=== PATIENT | female | born 1980 | race Caucasian/White ===

== ENCOUNTER 2017-03-16 06:03 | Inpatient (IN) | payer OTHER, SELFPAY ==
[2017-03-16 06:45] VITALS: BMI 32.4
[2017-03-16] MEDS: Lactated Ringer's 1,000 ML IV SCH ×2 (06:50→12:03)
[2017-03-16] MEDS ORDERED: Lidocaine 1% (PF) 30 ML VIAL SC PRN (08:01)
[2017-03-16] MEDS ORDERED: Promethazine HCl 25 MG/ML VIAL IM PRN ×2 (08:01→12:56)
[2017-03-16] MEDS ORDERED: LR / Pitocin 40 units/1000 ml 1,000 ML IV PRN (08:01)
[2017-03-16] MEDS ORDERED: Ondansetron HCl/PF 4 MG/2 ML Vial IVP PRN ×2 (08:01→12:56)
[2017-03-16 08:18] LABS: Hematocrit 40.7 % (36.0-47.0); Red Blood Cell (RBC) Count 4.44 mill/uL (4.20-5.40); White Blood Cell (WBC) Count 7.8 thou/uL (4.8-10.8)
[2017-03-16] MEDS ORDERED: LR 500 ML/Oxytocin 10 units 500 ML ONE (08:36)
[2017-03-16] MEDS ORDERED: LR 500 ML/Oxytocin 10 units 500 ML IV SCH (09:00)
--- NOTE | 2017-03-16 11:37 | PDOC.LDPN ---
Labor & Delivery Progress Note - Subjective Subjective: comfortable, no concerns - Objective Vital signs reviewed and normal: yes General: NAD, resting Uterine fundus: non tender SVE: by Dr. Teixeira @ 1130 Dilation: 6 Effacement: 75% Station: -3 FHT: category 1 (baseline 130/mod david/+accel/-decel), variability present [place] contractions every: 2-4 minutes - Assessment (1) Active labor at term Code(s): [id number] - Current Visit: No Status: Acute Comment: 36 yo @ 40.0 WGA presented for IOL. -started pitocin, currently at 10 -would like epidural for pain control -LR @ 125 Plan: continue plan of care
[2017-03-16] MEDS ORDERED: Fentanyl 4 mcg/Marc 0.1% Cadd 100 ML ONE (11:42)
[2017-03-16] MEDS ORDERED: Lidocaine 1% (PF) 30 ML VIAL ONE ×2 (12:31→16:57)
[2017-03-16] MEDS ORDERED: Naloxone HCl 0.4 mg/ml Vial IVP PRN ×2 (12:56)
[2017-03-16] MEDS ORDERED: Eucerin (Mineral Oil/Petrolatum,White) 30 gm Jar TOP PRN (12:56)
[2017-03-16] MEDS ORDERED: diphenhydrAMINE HCl 50 MG/ML 1 ML VIAL IVP PRN (12:56)
[2017-03-16] MEDS ORDERED: Acetaminophen 325 MG TAB PO PRN (12:56)
[2017-03-16] MEDS ORDERED: ePHEDrine/0.9% NaCl/PF SYRINGE 50 mg/10 ml SLOW IVP PRN (12:56)
[2017-03-16] MEDS ORDERED: Lactated Ringer's 500 ML IV PRN (12:56)
[2017-03-16] MEDS ORDERED: Fentanyl 4mcg/Marcaine 0.1% Cassette 100 ML EPIDURAL SCH (13:00)
[2017-03-16] MEDS ORDERED: Communication Order-Pharmacy FS SCH (13:00)
--- NOTE | 2017-03-16 15:37 | PDOC.LDPN ---
Labor & Delivery Progress Note - Subjective Subjective: comfortable - Objective Vital signs reviewed and normal: yes General: NAD Uterine fundus: non tender SVE: @ [address] Teixeira and nurse Dilation: 7 Effacement: 75% Station: -1 FHT: category 1, variability present [place] contractions every: 3-4 min AROM: clear fluid (when nurse was checking her the bag of water ruptured) - Assessment (1) Active labor at term Code(s): [id number] - Current Visit: No Status: Acute Comment: 36 yo @ 40.0 WGA presented for IOL. -on pitocin, currently at 10 -has epidural -LR @ 125 -Cervical checks q2h Plan: continue plan of care
[2017-03-16] MEDS ORDERED: LR / Pitocin 40 units/1000 ml 1,000 ML ONE (16:57)
[2017-03-16] MEDS ORDERED: Bupivacaine 0.25% HCL 30 ML VIAL ONE (19:44)
[2017-03-16] MEDS ORDERED: Lanolin Ointment 7 GM TUBE TOP PRN (19:54)
[2017-03-16] MEDS ORDERED: Adacel (T-DAP) 0.5 ML VIAL IM ONE (19:54)
[2017-03-16] MEDS ORDERED: Milk Of Magnesia 30 ML UDCUP PO PRN (19:54)
[2017-03-16] MEDS ORDERED: Benzocaine/Menthol 20-0.5% 60 ML CAN TOP PRN (19:54)
[2017-03-16] MEDS ORDERED: Bisacodyl 10 MG SUPP PR PRN (19:54)
[2017-03-16] MEDS ORDERED: LR / Pitocin 40 units/1000 ml 1,000 ML IV SCH (19:54)
[2017-03-16] MEDS: Docusate (Surfak) 240 MG CAP PO SCH (21:39)
[2017-03-16] MEDS: Ibuprofen 800 MG TAB PO SCH (21:39)
--- NOTE | 2017-03-16 22:46 | DN-2 ---
DELIVERING PHYSICIAN: Roselyn Teixeira M.D., and Javier Montoya M.D. ATTENDING PHYSICIAN: Ketty Williamson M.D. PROCEDURE: Normal spontaneous vaginal delivery. ANESTHESIA: Epidural. ESTIMATED BLOOD LOSS: 300 mL PREOPERATIVE DIAGNOSES: 1. Term intrauterine in labor. 2. Advanced maternal age. POSTOPERATIVE DIAGNOSES: 1. Term intrauterine , delivered. 2. Advanced maternal age. INDICATIONS: This is a 36-year-old female, G2, P1, presented for induction of labor due to concern for macrosomia for an elective induction. DELIVERY NOTE: This is a 36-year-old female, G2, P1-0-0-1 at 48.0 weeks, who delivered a viable mal e at 1714 on 03/16/2017. Following an uneventful antepartum course, vigorous male was delive red over an intact perineum in the occipitoanterior position. Anterior shoulder and then remainder of the body delivered. No nuchal cord. The head was held down and the mouth and nares were bulb cabral ctioned. Cord was clamped and cut and cord blood collected. Placenta delivered intact with a 3-ves bro cord noted. Fundal massage was performed. The fundus was firm. The cervix and vagina were ins pected and a first degree laceration was noted and repaired in the usual fashion with good approxima tion and hemostasis. went to nursery in good condition for routine care. Apgars wer e 9 and 9 at 1 and 5 minutes, respectively. The patient tolerated delivery well and went to postpar tim after routine recovery and care.
[2017-03-17] MEDS: Ibuprofen 800 MG TAB PO SCH ×3 (04:17→21:58)
[2017-03-17] MEDS ORDERED: FLU VACC QS2017-18 36 mo. & older 0.5 ML SYRINGE IM ONE (09:00)
[2017-03-17] MEDS: Prenatal Vitamin 1 TAB PO SCH (09:31)
[2017-03-17] MEDS: Docusate (Surfak) 240 MG CAP PO SCH ×2 (09:31→21:59)
[2017-03-17] MEDS: Lactated Ringer's 1,000 ML IV SCH ×2 (09:32→23:12)
--- NOTE | 2017-03-17 09:48 | PDOC.PP ---
Post Progress Note Post Day #: 1 PO intake tolerated: yes Flatus: no Ambulation: yes Vital Signs (12 hours) Temp Pulse Resp BP 03/17/17 07:59 97.7 F 66 20 109/66 03/17/17 04:45 98.5 F 71 18 Weight Weight 88.451 kg - Physical Examination General: NAD Cardiovascular: no m/r/g, RRR Respiratory: clear to ausculation bilateral Abdominal: + bowel sounds, lochia (minimal), no distention, appropriately TTP Fundus firm & at: umbilicus Extremities: negative homans (B) Skin: no rash Neurological: no gross focal deficits Psychiatric: normal affect Result Diagrams: 03/16/17 06:48 Additional Labs: Post Labs Hep Bs Antigen Non-Reactive S/CO (NonReactive) 03/16/17 06:48 (1) (normal spontaneous vaginal delivery) Code(s): O80 - ENCOUNTER FOR FULL-TERM UNCOMPLICATED DELIVERY Status: Acute Comment: H&H, VS stable. Ambulating, eating without issue. Routine PP management. Discuss contraception prior to discharge. well this AM. (2) Hypothyroidism Code(s): E03.9 - HYPOTHYROIDISM, UNSPECIFIED Status: Acute Comment: Continue levothyroxine. TSH normal during . (3) AMA (advanced maternal age) multigravida 35+ Code(s): O09.529 - SUPERVISION OF ELDERLY MULTIGRAVIDA, UNSPECIFIED TRIMESTER Status: Acute <Javier Montoya - Last Filed: 03/17/17 09:45> Vital Signs (12 hours) Temp Pulse Resp BP 03/17/17 08:00 97.7 F 66 20 03/17/17 07:59 97.7 F 66 20 109/66 03/17/17 04:45 98.5 F 71 18 Weight Weight 88.451 kg Result Diagrams: 03/16/17 06:48 Additional Labs: Post Labs Hep Bs Antigen Non-Reactive S/CO (NonReactive) 03/16/17 06:48 <Ketty Williamson - Last Filed: 03/17/17 10:27> Attending Addendum - Attending Addendum I personally evaluated the patient and discussed the management with Dr. Montoya I agree with the History, Examination, Assessment and Plan documented above with any addition or exceptions noted below- Patient without complaints. Ambulating voiding. Afebrile VSS A/P: 1) PPD #1 s.p - continue routine care. Anticipate d/c home tomorrow. <Ketty Williamson - Last Filed: 03/17/17 10:27>
[2017-03-18] MEDS: Lactated Ringer's 1,000 ML IV SCH ×2 (02:58→08:20)
[2017-03-18] MEDS: Ibuprofen 800 MG TAB PO SCH (06:25)
--- NOTE | 2017-03-18 07:58 | PDOC.PP ---
Post Progress Note Post Day #: 2 PO intake tolerated: yes Flatus: yes Ambulation: yes Vital Signs (12 hours) Temp Pulse Resp BP Pulse Ox 03/17/17 20:28 98.3 F 76 18 129/85 98 Weight Weight 88.451 kg - Physical Examination General: NAD Cardiovascular: no m/r/g, RRR Respiratory: clear to ausculation bilateral Abdominal: + bowel sounds Skin: no rash Neurological: no gross focal deficits Psychiatric: normal affect Result Diagrams: 03/16/17 06:48 Additional Labs: Post Labs Hep Bs Antigen Non-Reactive S/CO (NonReactive) 03/16/17 06:48 (1) (normal spontaneous vaginal delivery) Code(s): O80 - ENCOUNTER FOR FULL-TERM UNCOMPLICATED DELIVERY Status: Acute Comment: H&H, VS stable. Ambulating, eating without issue, passing flatus, well. Routine PP mgmt. Plan for discharge today. (2) Hypothyroidism Code(s): E03.9 - HYPOTHYROIDISM, UNSPECIFIED Status: Chronic Qualifiers: Hypothyroidism type: acquired Qualified Code(s): E03.9 - Hypothyroidism, unspecified Comment: Continue levothyroxine. TSH normal during . (3) AMA (advanced maternal age) multigravida 35+ Code(s): O09.529 - SUPERVISION OF ELDERLY MULTIGRAVIDA, UNSPECIFIED TRIMESTER Status: Resolved <Javier Montoya - Last Filed: 03/18/17 07:48> Vital Signs (12 hours) Temp Pulse Resp BP 03/18/17 08:02 98.0 F 60 20 127/76 Weight Weight 88.451 kg Result Diagrams: 03/16/17 06:48 Additional Labs: Post Labs Hep Bs Antigen Non-Reactive S/CO (NonReactive) 03/16/17 06:48 <Ketty Williamson - Last Filed: 03/18/17 09:44> Attending Addendum - Attending Addendum I personally evaluated the patient and discussed the management with Dr. Montoya I agree with the History, Examination, Assessment and Plan documented above with any addition or exceptions noted below- Patient without complaints. Ambulating well. Tolerating diet. Afebrile VSS. A/P: 1) PPD #2 s/p - plan to d/c home today. <Ketty Williamson - Last Filed: 03/18/17 09:44>
[2017-03-18 08:02] VITALS: BP 127/76; TEMP 98
[2017-03-18] MEDS: Prenatal Vitamin 1 TAB PO SCH (09:38)
[2017-03-18] MEDS: Docusate (Surfak) 240 MG CAP PO SCH (09:39)
== END 2017-03-18 12:45 | disposition home or self-care (01) | DRG 775 ==
LOC: L&D 06:03 → 3SW 19:57
PROVIDERS: ADMIT Family Medicine; ATTEND Family Medicine
PROC: 10E0XZZ Delivery of Products of Conception, External Approach (ICD-10-PCS; principal; 2017-03-16)
PROC: 3E0P3VZ Introduction of Hormone into Female Reproductive, Percutaneous Approach (ICD-10-PCS; 2017-03-16)
PROC: 0HQ9XZZ Repair Perineum Skin, External Approach (ICD-10-PCS; 2017-03-16)
DX: O70.0 First degree perineal laceration during delivery (principal); E03.9 Hypothyroidism, unspecified; Z37.0 Single live birth; Z3A.40 40 weeks gestation of pregnancy
CPT/HCPCS: 85027; 86780; 87340; J2001; J7120; S0020

== ENCOUNTER 2022-05-23 08:46 | Outpatient (CLI) | payer BC | END 2022-05-23 08:47 | disposition home or self-care (01) | LOC: BICMAMMO 08:46 | PROVIDERS: ATTEND Student in an Organized Health Care Education/Training Program | DX: Z12.31 Encounter for screening mammogram for malignant neoplasm of breast (principal); N64.89 Other specified disorders of breast | CPT/HCPCS: 77063; 77067 ==

== ENCOUNTER 2022-06-07 13:25 | Outpatient (CLI) | payer BC | END 2022-06-07 13:26 | disposition home or self-care (01) | LOC: BICMAMMO 13:25 | PROVIDERS: ATTEND Student in an Organized Health Care Education/Training Program | DX: R92.8 Other abnormal and inconclusive findings on diagnostic imaging of breast (principal) | CPT/HCPCS: G0279 ==

== ENCOUNTER 2023-08-01 09:28 | Outpatient (CLI) | payer BC | END 2023-08-01 09:29 | disposition home or self-care (01) | LOC: BICMAMMO 09:28 | PROVIDERS: ATTEND Family Medicine | DX: Z12.31 Encounter for screening mammogram for malignant neoplasm of breast (principal) | CPT/HCPCS: 77063; 77067 ==